=== PATIENT | female | born 1955 | race Caucasian/White ===

== ENCOUNTER 2017-08-11 10:51 | Outpatient (CLI) | payer OTHER | END 2017-08-11 10:52 | disposition home or self-care (01) | LOC: BICMAMMO 10:51 | PROVIDERS: ATTEND Family Medicine | DX: Z12.31 Encounter for screening mammogram for malignant neoplasm of breast (principal) | CPT/HCPCS: 77063 ==

== ENCOUNTER 2018-08-30 08:14 | Outpatient (CLI) | payer BC | END 2018-08-30 08:15 | disposition home or self-care (01) | LOC: BICMAMMO 08:14 | PROVIDERS: ATTEND Family Medicine | DX: Z12.31 Encounter for screening mammogram for malignant neoplasm of breast (principal); Z85.828 Personal history of other malignant neoplasm of skin | CPT/HCPCS: 77063; 77067 ==

== ENCOUNTER 2019-09-02 13:59 | Outpatient (CLI) | payer BC ==
--- NOTE | 2019-09-02 16:11 | MMO ---
Bilateral MAMMO Bilat Screen [facility]. CLINICAL HISTORY: Patient is 63 years old and is seen for screening. The patient has no family history of breast cancer. The patient has a history of Implants in 2005. VIEWS: The views performed were: bilateral craniocaudal with tomosynthesis and bilateral mediolateral oblique with tomosynthesis. FILMS COMPARED: The present examination has been compared to prior imaging studies performed at [facility] on 07/19/2016, 08/11/2017 and 08/30/2018. This study has been interpreted with the assistance of computer-aided detection. MAMMOGRAM FINDINGS: The breasts are heterogeneously dense, which could obscure a lesion on mammography. Benign calcifications are noted bilaterally. Bilateral implants are stable. There are no suspicious masses, suspicious calcifications, or new areas of architectural distortion. IMPRESSION: THERE IS NO MAMMOGRAPHIC EVIDENCE OF MALIGNANCY. A ROUTINE FOLLOW-UP MAMMOGRAM IN 1 YEAR IS RECOMMENDED. THE RESULTS OF THIS EXAM WERE SENT TO THE PATIENT. ACR BI-RADS Category 2 - Benign finding MAMMOGRAPHY NOTE: 1. A negative mammogram report should not delay a biopsy if a dominant of clinically suspicious mass is present. 2. Approximately 10% to 15% of breast cancers are not detected by mammography. 3. Adenosis and dense breasts may obscure an underlying neoplasm. Reported by: ROLF GUERRERO MD Electonically Signed: [id number]
== END 2019-09-02 14:00 | disposition home or self-care (01) ==
LOC: BICMAMMO 13:59
PROVIDERS: ATTEND Family Medicine
DX: Z12.31 Encounter for screening mammogram for malignant neoplasm of breast (principal); Z98.82 Breast implant status
CPT/HCPCS: 77063; 77067

== ENCOUNTER 2020-09-04 19:53 | Emergency (ER) | payer BC, SELFPAY ==
[2020-09-04 20:34] LABS: #Basophils 0.2 thou/uL (0.0-0.2); #Eosinphils 0.5 thou/uL (0.0-0.7); #Monocytes 0.8 thou/uL (0.11-0.59); %Basophils 1.7 % (0.0-1.0); %Eosinophils 4.4 % (0.0-10.0); %Lymphocytes 48.1 % (21.0-51.0); %Monocytes 7.9 % (0.0-10.0); Hemoglobin 13.6 g/dL (12.0-16.0); Mean Corpuscular Hemoglobin 30.5 pg (27.0-31.0); Mean Corpuscular Volume 92.2 fL (78.0-98.0); Mean Platelet Volume 8.4 fL (7.4-10.4); Platelet Count 341 thou/uL (130-400); RBC Distribution Width 12.3 % (11.5-14.5); Red Blood Cell (RBC) Count 4.48 mill/uL (4.20-5.40); White Blood Cell (WBC) Count 10.4 thou/uL (4.8-10.8)
[2020-09-04 20:55] LABS: ALT (SGPT) 17 U/L (8-55); AST (SGOT) 26 U/L (5-34); Alkaline Phosphatase 77 U/L (40-110); Anion Gap 15 mmol/L (10-20); BUN (Urea Nitrogen) 13 mg/dL (9.8-20.1); Bilirubin, Total 0.2 mg/dL (0.2-1.2); Calc. Creatinine Clearance 0 mL/min (70-130); Calcium 9.1 mg/dL (7.8-10.44); Carbon Dioxide 28 mmol/L (23-31); Chloride 104 mmol/L (98-107); Globulin 3.2 g/dL (2.4-3.5); Glucose 93 mg/dL (80-115); Lipase 89 U/L (8-78); Potassium 4.1 mmol/L (3.5-5.1); Protein, Total 7.2 g/dL (6.0-8.3); Sodium 143 mmol/L (136-145)
--- NOTE | 2020-09-04 21:39 | RAD ---
Chest one view HISTORY: Chest pain. FINDINGS: Cardiac silhouette and pulmonary vasculature are unremarkable. Mediastinum is midline. No confluent airspace consolidation or evidence of pneumothorax. There is S shaped curvature of the t horacic spine. IMPRESSION : No acute abnormalities are demonstrated.
== END 2020-09-04 22:07 | disposition home or self-care (01) ==
LOC: ERS 19:53
DX: R00.2 Palpitations (principal); I48.91 Unspecified atrial fibrillation; J45.909 Unspecified asthma, uncomplicated; Z79.01 Long term (current) use of anticoagulants
CPT/HCPCS: 71045; 80053; 83690; 84484; 85025; 93005

== ENCOUNTER 2022-11-21 11:33 | Outpatient (CLI) | payer MEDICARE, OTHER | END 2022-11-21 11:34 | disposition home or self-care (01) | LOC: SCSMRI 11:33 | PROVIDERS: ATTEND Orthopaedic Surgery | DX: M16.11 Unilateral primary osteoarthritis, right hip (principal); M84.359A Stress fracture, hip, unspecified, initial encounter for fracture ==

== ENCOUNTER 2022-12-08 15:23 | Outpatient (CLI) | payer MEDICARE, OTHER ==
[2022-12-08 16:20] LABS: Hemoglobin 12.7 g/dL (12.0-15.5); Mean Corpuscular HGB CONC 32.5 g/dL (32.0-36.0); Mean Corpuscular Hemoglobin 29.5 pg (27.0-33.0); Mean Corpuscular Volume 90.7 fl (81.6-98.3); Mean Platelet Volume 11.2 fl (7.4-10.4); Platelet Count 315 10x3/uL (150-450); RBC Distribution Width 12.8 % (11.5-14.5); Red Blood Cell (RBC) Count 4.31 10x6/uL (3.90-5.03); White Blood Cell (WBC) Count 9.5 10x3/uL (3.5-10.5)
[2022-12-08 17:01] LABS: Prothrombin Time 10.4 sec (9.5-12.1)
[2022-12-08 17:07] LABS: Anion Gap 14 mmol/L (10-20); BUN (Urea Nitrogen) 18 mg/dL (9.8-20.1); Calc. Creatinine Clearance 0 mL/min (70-130); Calcium 9.6 mg/dL (7.8-10.44); Carbon Dioxide 26 mmol/L (23-31); Chloride 106 mmol/L (98-107); Estimated GFR 74; Glucose 94 mg/dL (80-115); Sodium 142 mmol/L (136-145)
[2022-12-08 17:32] LABS: Eosinophils 5 % (0-10); Lymphocytes 56 % (21-51); Monocytes 5 % (0-10); Neutrophil 31 % (42-75); Reactive Lymphocytes 3 % (0-10)
[2022-12-08 17:35] LABS: Large Platelets SLIGHT; MDiff Complete? YES; Platelet Morphology Comment Appears Adequate
== END 2022-12-08 15:24 | disposition home or self-care (01) ==
LOC: LABBT 15:23
PROVIDERS: ATTEND Orthopaedic Surgery
DX: Z01.812 Encounter for preprocedural laboratory examination (principal); M16.11 Unilateral primary osteoarthritis, right hip
CPT/HCPCS: 80048; 85025; 85610; 87081; 93005; 93010

== ENCOUNTER 2022-12-13 09:43 | Observation (INO) | payer MEDICARE, OTHER ==
[2022-12-12 09:15] VITALS: BMI 21.6
[2022-12-13] MEDS ORDERED: Tranexamic Acid 1,000 MG/10 ML VIAL ONE (10:45)
[2022-12-13] MEDS ORDERED: Vancomycin 1 GM/200 ML (FROZEN) BAG ONE (10:45)
[2022-12-13] MEDS ORDERED: Sodium Chloride 0.9% 100 ML ONE ×2 (10:45→12:46)
[2022-12-13] MEDS ORDERED: Midazolam HCl 2 mg/2 ml Vial ONE (11:09)
[2022-12-13] MEDS ORDERED: Bupivacaine PF 0.5% 30 ML VIAL ONE ×2 (11:09→15:08)
[2022-12-13] MEDS ORDERED: fentaNYL 50 mcg/mL 1 mL Vial ONE (11:09)
[2022-12-13] MEDS ORDERED: diphenhydrAMINE 25 MG CAP PO PRN (12:39)
[2022-12-13] MEDS ORDERED: Acetaminophen 325 MG TAB PO PRN (12:39)
[2022-12-13] MEDS ORDERED: HYDROcodone/Acetaminophen 10/325 mg Tablet PO PRN ×2 (12:39)
[2022-12-13] MEDS ORDERED: Promethazine HCl 25 MG/ML VIAL IM PRN (12:39)
[2022-12-13] MEDS ORDERED: Ondansetron PF 4 MG/2 ML Vial IVP PRN (12:39)
[2022-12-13] MEDS ORDERED: Zolpidem Tartrate 5 MG TAB PO PRN (12:39)
[2022-12-13] MEDS ORDERED: Bupivacaine HCl 0.5%/Epinephrine 1:200,000/PF 30 ml Vial ONE (12:45)
[2022-12-13] MEDS ORDERED: Phenylephrine 10 MG/ML VIAL ONE (12:45)
[2022-12-13] MEDS ORDERED: CEFAZOLIN 2 GM VIAL ONE (12:46)
[2022-12-13] MEDS ORDERED: fentaNYL PF 100 MCG/2 ML SYRINGE ONE ×2 (13:53→15:09)
[2022-12-13] MEDS: fentaNYL 50 mcg/mL 1 mL Vial SLOW IVP PRN ×2 (16:33→18:07)
[2022-12-13] MEDS ORDERED: oxyCODONE/Acetaminophen 5 mg/325 mg Tablet PO PRN (16:45)
[2022-12-13] MEDS: oxyCODONE/Acetaminophen 5 mg/325 mg Tablet PO PRN ×2 (17:06→23:43)
[2022-12-13] MEDS: Sodium Chloride 0.9% 1,000 ML IV SCH ×2 (17:08→23:26)
[2022-12-13] MEDS ORDERED: Ketorolac Tromethamine 30 MG/ML VIAL IVP SCH (18:45)
[2022-12-13] MEDS: Aspirin 81 mg Enteric Coated Tablet PO SCH (20:45)
[2022-12-13] MEDS: CEFAZOLIN 2 GM in Sodium Chloride 0.9% 100 ML IVPB SCH (20:45)
[2022-12-13] MEDS ORDERED: Atorvastatin Calcium 20 MG TAB PO SCH (21:00)
[2022-12-14] MEDS: fentaNYL 50 mcg/mL 1 mL Vial SLOW IVP PRN (01:32)
[2022-12-14] MEDS ORDERED: Ketorolac Tromethamine 30 MG/ML VIAL IVP SCH ×2 (06:30→12:00)
[2022-12-14] MEDS: CEFAZOLIN 2 GM in Sodium Chloride 0.9% 100 ML IVPB SCH (06:54)
[2022-12-14 06:57] LABS: Hemoglobin 12.3 g/dL (12.0-16.0); Mean Corpuscular HGB CONC 32.4 g/dL (32.0-36.0); Mean Corpuscular Hemoglobin 30.3 pg (27.0-31.0); Mean Corpuscular Volume 93.4 fl (78.0-98.0); Mean Platelet Volume 8.7 fL (7.4-10.4); Platelet Count 261 10x3/uL (130-400); RBC Distribution Width 11.6 % (11.5-14.5); Red Blood Cell (RBC) Count 4.07 mill/uL (4.20-5.40); White Blood Cell (WBC) Count 12.9 10x3/uL (4.8-10.8)
[2022-12-14 07:35] VITALS: BP 124/69; TEMP 98.9
[2022-12-14] MEDS: Aspirin 81 mg Enteric Coated Tablet PO SCH (08:18)
[2022-12-14] MEDS ORDERED: traMADol HCl 50 MG TAB PO PRN (08:58)
[2022-12-14] MEDS ORDERED: Bupropion 150 MG XL TAB PO SCH (09:00)
[2022-12-14] MEDS ORDERED: Cholecalciferol 1,000 UNITS (25 MCG) TAB PO SCH (09:00)
[2022-12-14] MEDS ORDERED: Dextroamphetamine/Amphetamine [Adderall] 10 MG Tablet PO SCH (09:00)
[2022-12-14] MEDS ORDERED: Calcium Carbonate 600 MG TAB PO SCH (09:00)
[2022-12-14] MEDS ORDERED: Multivitamin W/ Minerals 1 TAB PO SCH (09:00)
[2022-12-14] MEDS ORDERED: Senokot S 8.6-50 MG TAB PO SCH (09:00)
[2022-12-14] MEDS ORDERED: Non-Formulary Item 1 EACH (Multivit-Min/Iron/Folic/Lutein [Centrum Silver Women] 1 TABLET PO SCH (09:00)
[2022-12-14] MEDS ORDERED: Ferrous Gluconate 324 MG TAB PO SCH (09:00)
[2022-12-14] MEDS: Sodium Chloride 0.9% 1,000 ML IV SCH (10:00)
== END 2022-12-14 15:05 | disposition home or self-care (01) ==
LOC: SDC 09:43 → SURG B 16:22
PROVIDERS: ADMIT Orthopaedic Surgery; ATTEND Orthopaedic Surgery
PROC: 0SR904A Replacement of Right Hip Joint with Ceramic on Polyethylene Synthetic Substitute, Uncemented, Open Approach (ICD-10-PCS; principal; 2022-12-13)
DX: S72.051A Unspecified fracture of head of right femur, initial encounter for closed fracture (principal); M16.11 Unilateral primary osteoarthritis, right hip; M24.151 Other articular cartilage disorders, right hip; Z79.82 Long term (current) use of aspirin; Z79.899 Other long term (current) drug therapy; X58.XXXA Exposure to other specified factors, initial encounter
CPT/HCPCS: 27130; 73502; 85027; 97110 ×2; 97116; 97530 ×2; C1776; J3010 ×2; J3370; 36415; 96374; 96375; 96376; G0378; J1885; J2250; J2370; J2405; J3490; S0020

== ENCOUNTER 2023-07-12 08:54 | Outpatient (CLI) | payer MEDICARE, OTHER | END 2023-07-12 08:55 | disposition home or self-care (01) | LOC: BICMAMMO 08:54 | PROVIDERS: ATTEND Family Medicine | DX: Z12.31 Encounter for screening mammogram for malignant neoplasm of breast (principal); Z98.82 Breast implant status | CPT/HCPCS: 77063; 77067 ==